=== PATIENT | female | born 1980 | race Caucasian/White ===

== ENCOUNTER 2018-05-07 18:27 | Emergency (ER) | payer SELFPAY ==
[~2018-05-07] VITALS: Ht 162.6 cm; Wt 100.7 kg
[~2018-05-07 18:27] MED LIST: OMEP20TA62 PO
[2018-05-07] MEDS ORDERED: HYDROcodone/APAP 5/325 TABLET ONE (18:55)
[2018-05-07] MEDS ORDERED: HYDROcodone/APAP 5/325 TABLET PO ONE (19:00)
[2018-05-07 19:42] VITALS: BP 107/78
== END 2018-05-07 19:44 | disposition home or self-care (01) ==
LOC: ED 19:19
DX: G89.11 Acute pain due to trauma (principal); M25.561 Pain in right knee; X58.XXXA Exposure to other specified factors, initial encounter; Y93.89 Activity, other specified; Y92.89 Other specified places as the place of occurrence of the external cause; Y99.8 Other external cause status
CPT/HCPCS: 29505; 99283

== ENCOUNTER 2019-11-02 12:30 | Emergency (ER) | payer OTHER ==
[~2019-11-02] VITALS: Ht 160 cm; Wt 109.0 kg
--- NOTE | 2019-11-02 13:07 | NUR ---
EXCEL EXPERT: PT TO ROOM FROM JENNIFER HERNANDEZ
--- NOTE | 2019-11-02 13:36 | NUR ---
pt sts she feels "weird" since she started metformin 2 weeks ago, is worried bc per [employer] the drug was on "voluntary recall" but did not research more, sts her blood sugar is "all over the place" 93-150s her pcp told her she was ok but she does not feel right. as
--- NOTE | 2019-11-02 14:07 | NUR ---
given ua cup oob gait steady. as
[2019-11-02 14:25] LABS: MICROSCOPIC NOT IND
--- NOTE | 2019-11-02 14:27 | NUR ---
report to adria pickens. as
[2019-11-02 14:31] LABS: BASOPHILS % (AUTO) 1 % (0-1); EOSINOPHILS # (AUTO) 0.25 x10^3/uL (0-0.4); EOSINOPHILS % (AUTO) 3 % (1-7); LYMPHOCYTES # (AUTO) 2.98 x10^3/uL (1-3.4); LYMPHOCYTES % (AUTO) 29 % (22-44); MD NO; MEAN CORPUSCULAR HEMOGLOBIN 25.6 pg (27.0-34.8); MEAN CORPUSCULAR HGB CONC 32.8 g/dL (32.4-35.8); MEAN CORPUSCULAR VOLUME 77.8 fL (80-100); MEAN PLATELET VOLUME 7.9 fL (7.4-10.4); MONOCYTES # (AUTO) 0.54 x10^3/uL (0.2-0.8); MONOCYTES % (AUTO) 5 % (2-9); NEUTROPHILS # (AUTO) 6.37 x10^3/uL (1.8-6.8); NEUTROPHILS % (AUTO) 62 % (42-75); PLATELET COUNT 332 x10^3/uL (130-400); RED BLOOD COUNT 4.87 x10^6/uL (3.82-5.3); RED CELL DISTRIBUTION WIDTH 14.6 % (9.6-15.2)
[2019-11-02 14:44] LABS: ALBUMIN 3.3 g/dL (3.4-5.0); ANION GAP 8 mmol/L (5-15); CALCIUM 8.4 mg/dL (8.5-10.1); CHLORIDE 108 mmol/L (98-107)
[2019-11-02 14:51] LABS: ALANINE AMINOTRANSFERASE 49 U/L (12-78); ALKALINE PHOSPHATASE 98 U/L (45-117); BILIRUBIN,TOTAL 0.7 mg/dL (0.2-1.0); CREATININE 0.75 mg/dL (0.55-1.02); TOTAL PROTEIN 8.3 g/dL (6.4-8.2)
[2019-11-02 16:12] VITALS: BP 123/74
== END 2019-11-02 16:16 | disposition home or self-care (01) ==
LOC: ED 13:30
DX: R10.13 Epigastric pain (principal); R53.83 Other fatigue; R10.11 Right upper quadrant pain; E11.9 Type 2 diabetes mellitus without complications; K21.9 Gastro-esophageal reflux disease without esophagitis; Z90.49 Acquired absence of other specified parts of digestive tract
CPT/HCPCS: 36415; 80053; 81003; 83690; 84703; 85025; 99283

== ENCOUNTER 2020-12-29 04:47 | Inpatient (IN) | payer OTHER ==
[~2020-12-29] VITALS: Ht 160 cm; Wt 105.1 kg
[2020-12-29] MEDS ORDERED: ALBUTEROL/IPRATROPIUM 2.5MG/0.5MG, 3 ML ONE (05:22)
[2020-12-29] MEDS ORDERED: ALBUTEROL/IPRATROPIUM 2.5MG/0.5MG, 3 ML NPPB ONE (05:30)
--- NOTE | 2020-12-29 05:40 | NUR ---
PATIENT PROVIDED WITH PO FLUIDS.
[2020-12-29 05:43] LABS: BASOPHILS % (AUTO) 1 % (0-1); EOSINOPHILS % (AUTO) 0 % (1-7); LYMPHOCYTES % (AUTO) 25 % (22-44); MEAN PLATELET VOLUME 7.4 fL (7.4-10.4); MONOCYTES % (AUTO) 5 % (2-9); NEUTROPHILS % (AUTO) 68 % (42-75); PLATELET COUNT 199 x10^3/uL (130-400); RED BLOOD COUNT 4.88 x10^6/uL (3.82-5.3)
--- NOTE | 2020-12-29 05:45 | NUR ---
HERB SWAB WALKED TO THE LAB BY THIS RN.
[2020-12-29 05:54] LABS: ALANINE AMINOTRANSFERASE 54 U/L (12-78); ANION GAP 5 mmol/L (5-15); CALCIUM 8.1 mg/dL (8.5-10.1); CHLORIDE 107 mmol/L (98-107); CREATININE 0.72 mg/dL (0.55-1.02)
[2020-12-29 06:01] LABS: ALKALINE PHOSPHATASE 77 U/L (45-117); BILIRUBIN,TOTAL 0.3 mg/dL (0.2-1.0); TOTAL PROTEIN 7.9 g/dL (6.4-8.2)
--- NOTE | 2020-12-29 06:27 | NUR ---
PATIENT SP02 ON 2L NC 93%. PATIENT SPO2 ON RA 85-89%. WILL MAKE MD AWARE.
--- NOTE | 2020-12-29 06:51 | NUR ---
REPORT GIVEN TO MARTHA CARABALLO
--- NOTE | 2020-12-29 06:55 | NUR ---
ASSUMING CARE OF PT AFTER BEDSIDE REPORT FROM MOHAMUD THOMAS. PT RESTING COMFORTABLY. VSS. NADN. TO BE ADMITTED.
--- NOTE | 2020-12-29 07:18 | NUR ---
DR. FLEMING AT BEDSIDE DISCUSSING POC WITH PT.
[2020-12-29] MEDS ORDERED: PANTOPRAZOLE 40 MG IV ONE (07:28)
--- NOTE | 2020-12-29 07:38 | NUR ---
PT MEDICATED PER EMAR. VSS. KALLIN.
[2020-12-29] MEDS ORDERED: PROMETHAZINE 25 MG/ML, 1ML IM PRN (08:30)
[2020-12-29] MEDS ORDERED: ENALAPRILAT 1.25 MG/ML, 2ML IVPush PRN (08:30)
[2020-12-29] MEDS ORDERED: GLUCAGON 1 MG IM PRN (08:30)
[2020-12-29] MEDS ORDERED: LABETALOL 5MG/ML, 20ML IVPush PRN (08:30)
[2020-12-29] MEDS ORDERED: POLYETHYLENE GLYCOL 17 GM PACKET PO PRN (08:30)
[2020-12-29] MEDS ORDERED: LORazepam 0.5MG TABLET PO PRN (08:30)
[2020-12-29] MEDS ORDERED: DOCUSATE 100 MG CAPSULE PO PRN (08:30)
[2020-12-29] MEDS ORDERED: DEXTROSE 4 GM TAB.CHEW PO PRN (08:30)
[2020-12-29] MEDS ORDERED: PHARMACY MAY ADJ FOR RENAL FX MC PRN (08:30)
[2020-12-29] MEDS ORDERED: DEXTROSE 50%, 50ML SYRINGE IVPush PRN (08:30)
[2020-12-29] MEDS: SERTRALINE 50MG TABLET PO SCH ×2 (08:44→08:58)
[2020-12-29] MEDS: PANTOPRAZOLE 40 MG IV IVPush SCH ×2 (08:44→20:43)
[2020-12-29] MEDS ORDERED: ZINC SULFATE 220 MG CAPSULE ONE (08:53)
[2020-12-29] MEDS ORDERED: SERTRALINE 50MG TABLET ONE (08:53)
[2020-12-29] MEDS ORDERED: DEXAMETHASONE 4 MG TABLET ONE (08:53)
[2020-12-29] MEDS ORDERED: ASCORBIC ACID 500 MG TABLET ONE (08:53)
[2020-12-29] MEDS: ASCORBIC ACID 500 MG TABLET PO SCH ×2 (08:58→20:42)
[2020-12-29] MEDS: ZINC SULFATE 220 MG CAPSULE PO SCH (08:58)
[2020-12-29] MEDS: DEXAMETHASONE 1 MG TABLET PO SCH (08:58)
[2020-12-29] MEDS ORDERED: PANTOPRAZOLE 40 MG IV IVPush ONE (09:00)
[2020-12-29] MEDS: SODIUM CHLORIDE FLUSH 10ML SYR IVF SCH ×2 (09:00→20:42)
--- NOTE | 2020-12-29 09:00 | NUR ---
PT MEDICATED PER EMAR. YELLOW MED REQ SLIP SENT FOR IVF. PT PROVIDED WITH BREAKFAST TRAY AND WATER. VSS. ZAZUETA.
[2020-12-29 12:43] VITALS: BP 109/69
[2020-12-29] MEDS: INSULIN LISPRO 100 UNITS/ML, PEN SQ-INSULIN SCH ×3 (13:18→20:42)
[2020-12-29] MEDS: KCL IV SCH (13:21)
[2020-12-29] MEDS: NS IV SCH (13:21)
[2020-12-29 13:30] VITALS: BP 105/67
[2020-12-29] MEDS ORDERED: REMDESIVIR 200 MG in SODIUM CHLORIDE 0.9% 250 ML IVPB ONE (14:00)
[2020-12-29] MEDS: ALBUTEROL HFA 90 MCG/SPRAY INH SCH ×3 (15:21→20:56)
[2020-12-29] MEDS ORDERED: PANT20TA4 PO (17:25)
[2020-12-29] MEDS ORDERED: SERT-237 PO (17:25)
[2020-12-29 19:57] VITALS: BP 104/65
[2020-12-30 02:01] VITALS: BP 101/65
[2020-12-30] MEDS: KCL IV SCH ×2 (02:05→16:09)
[2020-12-30] MEDS: NS IV SCH ×2 (02:05→16:09)
[2020-12-30] MEDS: ALBUTEROL HFA 90 MCG/SPRAY INH SCH ×4 (06:03→21:06)
[2020-12-30 06:36] LABS: BASOPHILS % (AUTO) 0 % (0-1); EOSINOPHILS % (AUTO) 0 % (1-7); LYMPHOCYTES % (AUTO) 24 % (22-44); MEAN CORPUSCULAR HEMOGLOBIN 24.3 pg (27.0-34.8); MEAN CORPUSCULAR HGB CONC 33.1 g/dL (32.4-35.8); MEAN PLATELET VOLUME 7.7 fL (7.4-10.4); MONOCYTES % (AUTO) 5 % (2-9); NEUTROPHILS % (AUTO) 71 % (42-75); PLATELET COUNT 187 x10^3/uL (130-400); RED BLOOD COUNT 4.48 x10^6/uL (3.82-5.3); RED CELL DISTRIBUTION WIDTH 16.1 % (9.6-15.2)
[2020-12-30 06:50] LABS: ALANINE AMINOTRANSFERASE 44 U/L (12-78); ALBUMIN 2.7 g/dL (3.4-5.0); ANION GAP 6 mmol/L (5-15); CHLORIDE 109 mmol/L (98-107); CREATININE 0.52 mg/dL (0.55-1.02)
[2020-12-30 06:53] LABS: ALKALINE PHOSPHATASE 72 U/L (45-117); BILIRUBIN,TOTAL 0.3 mg/dL (0.2-1.0)
[2020-12-30] MEDS: INSULIN LISPRO 100 UNITS/ML, PEN SQ-INSULIN SCH ×4 (07:00→21:00)
[2020-12-30 08:06] VITALS: BP 114/72
[2020-12-30] MEDS: SODIUM CHLORIDE FLUSH 10ML SYR IVF SCH ×2 (08:49→21:05)
[2020-12-30] MEDS: DEXAMETHASONE 1 MG TABLET PO SCH (08:50)
[2020-12-30] MEDS: PANTOPRAZOLE 40 MG IV IVPush SCH (08:50)
[2020-12-30] MEDS: ASCORBIC ACID 500 MG TABLET PO SCH ×2 (08:50→21:06)
[2020-12-30] MEDS: SERTRALINE 50MG TABLET PO SCH ×2 (08:51)
[2020-12-30] MEDS: ZINC SULFATE 220 MG CAPSULE PO SCH (08:51)
[2020-12-30] MEDS ORDERED: OMNIPAQUE 350 MG/ML, 100ML BOTTLE ONE (14:13)
[2020-12-30 16:00] VITALS: BP 93/57
[2020-12-30] MEDS: REMDESIVIR 100 MG in SODIUM CHLORIDE 0.9% 250 ML IVPB SCH (16:09)
[2020-12-30 19:32] VITALS: BP 98/59
[2020-12-30] MEDS: PANTOPRAZOLE 40MG TABLET PO SCH (21:06)
[2020-12-31 00:19] VITALS: BP 101/63
[2020-12-31] MEDS: ACETAMINOPHEN 325 MG TABLET PO PRN (00:55)
[2020-12-31] MEDS: NS IV SCH (06:22)
[2020-12-31] MEDS: KCL IV SCH (06:22)
[2020-12-31] MEDS: PANTOPRAZOLE 40MG TABLET PO SCH ×2 (06:22→17:14)
[2020-12-31] MEDS: ALBUTEROL HFA 90 MCG/SPRAY INH SCH ×4 (06:22→20:38)
[2020-12-31 06:24] LABS: CHLORIDE 111 mmol/L (98-107)
[2020-12-31 06:45] LABS: ALANINE AMINOTRANSFERASE 40 U/L (12-78); ALBUMIN 2.7 g/dL (3.4-5.0); ALKALINE PHOSPHATASE 70 U/L (45-117); ANION GAP 5 mmol/L (5-15); BILIRUBIN,TOTAL 0.3 mg/dL (0.2-1.0); CREATININE 0.58 mg/dL (0.55-1.02); TOTAL PROTEIN 7.2 g/dL (6.4-8.2)
[2020-12-31] MEDS: INSULIN LISPRO 100 UNITS/ML, PEN SQ-INSULIN SCH ×4 (07:00→20:42)
[2020-12-31 07:34] VITALS: BP 96/61
[2020-12-31] MEDS: SODIUM CHLORIDE FLUSH 10ML SYR IVF SCH ×2 (10:17→20:38)
[2020-12-31] MEDS: ZINC SULFATE 220 MG CAPSULE PO SCH (10:17)
[2020-12-31] MEDS: DEXAMETHASONE 1 MG TABLET PO SCH (10:17)
[2020-12-31] MEDS: SERTRALINE 50MG TABLET PO SCH ×2 (10:17)
[2020-12-31] MEDS: ASCORBIC ACID 500 MG TABLET PO SCH ×2 (10:17→20:38)
[2020-12-31 12:19] VITALS: BP 96/62
[2020-12-31] MEDS: REMDESIVIR 100 MG in SODIUM CHLORIDE 0.9% 250 ML IVPB SCH (15:25)
[2020-12-31 20:00] VITALS: BP 104/63
[2021-01-01 01:17] VITALS: BP 110/67
[2021-01-01] MEDS: ALBUTEROL HFA 90 MCG/SPRAY INH SCH ×4 (06:17→22:56)
[2021-01-01] MEDS: PANTOPRAZOLE 40MG TABLET PO SCH ×2 (06:17→16:50)
[2021-01-01] MEDS: KCL IV SCH (06:17)
[2021-01-01] MEDS: NS IV SCH (06:17)
[2021-01-01 06:53] LABS: ALBUMIN 2.6 g/dL (3.4-5.0); ANION GAP 5 mmol/L (5-15); CALCIUM 8.3 mg/dL (8.5-10.1); CHLORIDE 110 mmol/L (98-107)
[2021-01-01 06:58] LABS: ALANINE AMINOTRANSFERASE 52 U/L (12-78); ALKALINE PHOSPHATASE 72 U/L (45-117); BILIRUBIN,TOTAL 0.4 mg/dL (0.2-1.0); CREATININE 0.41 mg/dL (0.55-1.02); TOTAL PROTEIN 7.1 g/dL (6.4-8.2)
[2021-01-01 07:54] VITALS: BP 103/65
[2021-01-01] MEDS: INSULIN LISPRO 100 UNITS/ML, PEN SQ-INSULIN SCH ×4 (08:02→21:06)
[2021-01-01] MEDS: ACETAMINOPHEN 325 MG TABLET PO PRN (08:04)
[2021-01-01] MEDS: SODIUM CHLORIDE FLUSH 10ML SYR IVF SCH ×2 (08:04→21:00)
[2021-01-01] MEDS: ASCORBIC ACID 500 MG TABLET PO SCH ×2 (08:04→21:05)
[2021-01-01] MEDS: DEXAMETHASONE 1 MG TABLET PO SCH (08:04)
[2021-01-01] MEDS: SERTRALINE 50MG TABLET PO SCH ×2 (08:04→08:05)
[2021-01-01] MEDS: ZINC SULFATE 220 MG CAPSULE PO SCH (08:05)
[2021-01-01] MEDS: ONDANSETRON ODT 4 MG PO PRN ×2 (10:18→22:55)
[2021-01-01 13:52] VITALS: BP 102/64
[2021-01-01] MEDS: REMDESIVIR 100 MG in SODIUM CHLORIDE 0.9% 250 ML IVPB SCH (18:11)
[2021-01-01 20:08] VITALS: BP 109/62
[2021-01-01] MEDS: LACTOBACILLUS CHEW TABLET PO SCH (21:05)
[2021-01-01] MEDS: AZITHROMYCIN 500 MG in SODIUM CHLORIDE 0.9% 250 ML IV SCH (21:06)
[2021-01-01] MEDS: CEFTRIAXONE 1,000 MG in DEXTROSE 5% 50 ML IVPB SCH (22:55)
[2021-01-02 00:50] VITALS: BP 107/61
[2021-01-02 04:39] LABS: BASOPHILS % (AUTO) 0 % (0-1); EOSINOPHILS % (AUTO) 0 % (1-7); LYMPHOCYTES % (AUTO) 29 % (22-44); MEAN CORPUSCULAR HEMOGLOBIN 24.2 pg (27.0-34.8); MEAN CORPUSCULAR HGB CONC 33.5 g/dL (32.4-35.8); MEAN PLATELET VOLUME 7.4 fL (7.4-10.4); MONOCYTES % (AUTO) 11 % (2-9); NEUTROPHILS % (AUTO) 60 % (42-75); PLATELET COUNT 278 x10^3/uL (130-400); RED BLOOD COUNT 4.42 x10^6/uL (3.82-5.3); RED CELL DISTRIBUTION WIDTH 16.1 % (9.6-15.2)
[2021-01-02 04:49] LABS: ALANINE AMINOTRANSFERASE 106 U/L (12-78); ALBUMIN 2.6 g/dL (3.4-5.0); ANION GAP 3 mmol/L (5-15); CALCIUM 8.1 mg/dL (8.5-10.1); CHLORIDE 110 mmol/L (98-107); CREATININE 0.45 mg/dL (0.55-1.02)
[2021-01-02 04:52] LABS: ALKALINE PHOSPHATASE 76 U/L (45-117); BILIRUBIN,TOTAL 0.3 mg/dL (0.2-1.0); D-DIMER 0.56 ug/mlFEU (0.00-0.52)
[2021-01-02] MEDS: ACETAMINOPHEN 325 MG TABLET PO PRN (04:57)
[2021-01-02] MEDS: PANTOPRAZOLE 40MG TABLET PO SCH ×2 (05:59→17:04)
[2021-01-02] MEDS: ALBUTEROL HFA 90 MCG/SPRAY INH SCH ×4 (06:00→21:19)
[2021-01-02 07:27] VITALS: BP 112/69
[2021-01-02] MEDS: INSULIN LISPRO 100 UNITS/ML, PEN SQ-INSULIN SCH ×4 (07:40→21:19)
[2021-01-02] MEDS: SODIUM CHLORIDE FLUSH 10ML SYR IVF SCH ×2 (09:19→21:26)
[2021-01-02] MEDS: CHOLECALCIFEROL 1,000 UNIT TABLET PO SCH (09:19)
[2021-01-02] MEDS: ASCORBIC ACID 500 MG TABLET PO SCH ×2 (09:19→21:19)
[2021-01-02] MEDS: THIAMINE 100MG TABLET PO SCH (09:19)
[2021-01-02] MEDS: LACTOBACILLUS CHEW TABLET PO SCH ×3 (09:19→21:19)
[2021-01-02] MEDS: DEXAMETHASONE 1 MG TABLET PO SCH (09:19)
[2021-01-02] MEDS: SERTRALINE 50MG TABLET PO SCH (09:20)
[2021-01-02] MEDS: ZINC SULFATE 220 MG CAPSULE PO SCH (09:20)
[2021-01-02] MEDS: CEFTRIAXONE 1,000 MG in DEXTROSE 5% 50 ML IVPB SCH ×2 (10:21→22:39)
[2021-01-02 11:51] VITALS: BP 105/67
[2021-01-02] MEDS: REMDESIVIR 100 MG in SODIUM CHLORIDE 0.9% 250 ML IVPB SCH (16:23)
[2021-01-02 20:49] VITALS: BP 114/67
[2021-01-02] MEDS: AZITHROMYCIN 500 MG in SODIUM CHLORIDE 0.9% 250 ML IV SCH (21:19)
[2021-01-03 03:40] VITALS: BP 114/73
[2021-01-03 04:53] LABS: BASOPHILS % (AUTO) 0 % (0-1); EOSINOPHILS % (AUTO) 0 % (1-7); LYMPHOCYTES % (AUTO) 24 % (22-44); MEAN CORPUSCULAR HEMOGLOBIN 24.3 pg (27.0-34.8); MEAN CORPUSCULAR HGB CONC 33.3 g/dL (32.4-35.8); MEAN PLATELET VOLUME 7.6 fL (7.4-10.4); MONOCYTES % (AUTO) 10 % (2-9); NEUTROPHILS % (AUTO) 66 % (42-75); PLATELET COUNT 291 x10^3/uL (130-400); RED BLOOD COUNT 4.61 x10^6/uL (3.82-5.3); RED CELL DISTRIBUTION WIDTH 15.9 % (9.6-15.2)
[2021-01-03 04:58] LABS: ALANINE AMINOTRANSFERASE 98 U/L (12-78); ALBUMIN 2.7 g/dL (3.4-5.0); ANION GAP 6 mmol/L (5-15); CHLORIDE 107 mmol/L (98-107); CREATININE 0.52 mg/dL (0.55-1.02)
[2021-01-03 05:01] LABS: ALKALINE PHOSPHATASE 77 U/L (45-117); BILIRUBIN,TOTAL 0.3 mg/dL (0.2-1.0); TOTAL PROTEIN 7.5 g/dL (6.4-8.2)
[2021-01-03] MEDS: ALBUTEROL HFA 90 MCG/SPRAY INH SCH (06:02)
[2021-01-03] MEDS: PANTOPRAZOLE 40MG TABLET PO SCH (06:02)
[2021-01-03] MEDS: INSULIN LISPRO 100 UNITS/ML, PEN SQ-INSULIN SCH ×2 (07:00→12:06)
[2021-01-03 07:09] VITALS: BP 111/68
[2021-01-03] MEDS: CHOLECALCIFEROL 1,000 UNIT TABLET PO SCH (08:39)
[2021-01-03] MEDS: SODIUM CHLORIDE FLUSH 10ML SYR IVF SCH (08:39)
[2021-01-03] MEDS: ZINC SULFATE 220 MG CAPSULE PO SCH (08:39)
[2021-01-03] MEDS: THIAMINE 100MG TABLET PO SCH (08:39)
[2021-01-03] MEDS: ASCORBIC ACID 500 MG TABLET PO SCH (08:39)
[2021-01-03] MEDS: DEXAMETHASONE 1 MG TABLET PO SCH (08:39)
[2021-01-03] MEDS: LACTOBACILLUS CHEW TABLET PO SCH (08:39)
[2021-01-03] MEDS: SERTRALINE 50MG TABLET PO SCH (08:39)
[2021-01-03] MEDS ORDERED: ONDA4TAB7 PO (09:18)
[2021-01-03] MEDS ORDERED: ASCO500T9 PO (09:18)
[2021-01-03] MEDS ORDERED: ZINC220C8 PO (09:18)
[2021-01-03] MEDS ORDERED: BENZ100C PO (09:18)
[2021-01-03] MEDS: CEFTRIAXONE 1,000 MG in DEXTROSE 5% 50 ML IVPB SCH (10:47)
[2021-01-03 12:09] VITALS: BP 104/66
== END 2021-01-03 15:20 | disposition home or self-care (01) | DRG 177 ==
LOC: ED 06:43 → EDIP 07:20 → 3N 10:16
PROVIDERS: ADMIT Family Medicine; ATTEND Internal Medicine
PROC: XW033E5 Introduction of Remdesivir Anti-infective into Peripheral Vein, Percutaneous Approach, New Technology Group 5 (ICD-10-PCS; principal; 2020-12-30)
DX: U07.1 COVID-19 (principal); J96.01 Acute respiratory failure with hypoxia; J12.82 Pneumonia due to coronavirus disease 2019; R04.2 Hemoptysis; D64.9 Anemia, unspecified; E87.6 Hypokalemia; R59.0 Localized enlarged lymph nodes; F32.9 Major depressive disorder, single episode, unspecified; K21.9 Gastro-esophageal reflux disease without esophagitis; Z87.891 Personal history of nicotine dependence; Z99.81 Dependence on supplemental oxygen; Z88.8 Allergy status to other drugs, medicaments and biological substances; Z91.013 Allergy to seafood; Z90.49 Acquired absence of other specified parts of digestive tract; R73.03 Prediabetes; R73.9 Hyperglycemia, unspecified
CPT/HCPCS: 36415; 71045; 71275; 80053; 82962; 83036; 83605; 83690; 83735; 84145; 84702; 85018; 85025; 85379; 85384; 85651; 86140; 87040; 93005; 93970; 96374; G0378; J0456; J0696; J3480; Q0162; Q9967; C9113; J1815; J7050